=== PATIENT | male | born 1950 | race Caucasian/White ===

== ENCOUNTER 2025-07-17 18:47 | Emergency (ER) | payer MEDICARE, BC ==
[~2025-07-17] VITALS: Ht 182.9 cm; Wt 105.0 kg
[2025-07-17 18:59] VITALS: TEMP 36.9; O2SAT 96
[2025-07-17] MEDS ORDERED: LIDOCAINE 5% PATCH TOP SCH (21:15)
[2025-07-17 21:24] VITALS: TEMP 98.4
[2025-07-17] MEDS: ACETAMINOPHEN 325MG TABLET PO ONE (21:24)
[2025-07-17] MEDS: LIDOCAINE 5% PATCH TOP SCH (21:25)
[2025-07-17] MEDS ORDERED: NAPR-1176 MT (21:38)
[2025-07-17] MEDS ORDERED: LIDO-53 TP (21:38)
[2025-07-17 21:54] VITALS: BP 150/81; PULSE 70; RESP 16; O2SAT 99
== END 2025-07-17 21:55 | disposition home or self-care (01) ==
LOC: ER 18:47
DX: M25.562 Pain in left knee (principal); Z79.1 Long term (current) use of non-steroidal anti-inflammatories (NSAID); Z98.890 Other specified postprocedural states; X50.1XXA Overexertion from prolonged static or awkward postures, initial encounter; Y93.89 Activity, other specified; Y92.89 Other specified places as the place of occurrence of the external cause; Y99.8 Other external cause status
CPT/HCPCS: 73562; 93971; 99284